=== PATIENT | female | born 1965 | race Caucasian/White ===

== ENCOUNTER 2023-07-19 10:42 | Outpatient (RCR) | payer SELFPAY | END 2023-07-19 23:59 | disposition home or self-care (01) | LOC: RPT 10:42 | PROVIDERS: ATTENDING PHYSICIAN Nurse Practitioner; PRIMARYCARE PHYSICIAN Family Medicine | DX: N81.2 Incomplete uterovaginal prolapse (principal); N81.6 Rectocele; R35.0 Frequency of micturition; M99.05 Segmental and somatic dysfunction of pelvic region | CPT/HCPCS: 97110; 97112 ==

== ENCOUNTER → 2023-11-19 13:10 | Outpatient (REF) | payer OTHER, SELFPAY | LOC: HWWDC 13:10 | PROVIDERS: ATTENDING PHYSICIAN Family Medicine | DX: Z12.31 Encounter for screening mammogram for malignant neoplasm of breast (principal) | CPT/HCPCS: 77063; 77067 ==

== ENCOUNTER → 2024-12-08 14:26 | Outpatient (REF) | payer OTHER, SELFPAY | LOC: HWRAD 14:26 | PROVIDERS: ATTENDING PHYSICIAN Family Medicine | DX: Z13.820 Encounter for screening for osteoporosis (principal) | CPT/HCPCS: 77080 ==

== ENCOUNTER → 2024-12-22 14:36 | Outpatient (REF) | payer OTHER, SELFPAY | LOC: HWWDC 14:36 | PROVIDERS: ATTENDING PHYSICIAN Family Medicine | DX: Z12.31 Encounter for screening mammogram for malignant neoplasm of breast (principal) | CPT/HCPCS: 77063; 77067 ==

== ENCOUNTER 2025-03-25 06:33 | Day surgery (SDC) | payer OTHER, SELFPAY | END 2025-03-25 10:13 | disposition home or self-care (01) | LOC: GI 06:33 | PROVIDERS: ATTENDING PHYSICIAN Internal Medicine | DX: Z12.11 Encounter for screening for malignant neoplasm of colon (principal); K64.9 Unspecified hemorrhoids; K57.30 Diverticulosis of large intestine without perforation or abscess without bleeding; K63.5 Polyp of colon; K63.9 Disease of intestine, unspecified; Z86.0101 Personal history of adenomatous and serrated colon polyps | CPT/HCPCS: 45380; 88305 ==